=== PATIENT | female | born 1985 | race Caucasian/White ===

== ENCOUNTER 2024-04-14 17:35 | Inpatient (IN) | payer SELFPAY ==
[2024-04-14 18:02] VITALS: BP 164/102; PULSE 92; RESP 17; O2SAT 100
[2024-04-14 20:46] VITALS: BP 165/95; PULSE 88; RESP 16; TEMP 36.7; O2SAT 100
[2024-04-14] MEDS: cephALEXin 500 mg Capsule PO (22:09)
[2024-04-14] MEDS: hyDROXYzine 25 mg Capsule 50 MG PO (22:09)
[2024-04-15 06:00] VITALS: BP 148/90; PULSE 77; RESP 16; TEMP 36.5; O2SAT 98
[2024-04-15] MEDS: cephALEXin 500 mg Capsule PO ×3 (09:11→21:53)
[2024-04-15] MEDS: ibuprofen 600 mg Tablet PO (09:11)
[2024-04-15] MEDS: OLANZapine 5 mg ODT PO (09:12)
--- NOTE | 2024-04-15 10:03 | PC.NURSE ---
PT CONTINUES TO WITHDRAW TO ROOM. RATES ANXIETY /, ZYDIS 5 MG GIVEN ORDERED FOR ANXIETY. RATES DEPRESSION 06/15. PT DENIES SI/HI BUT DOES ENDORSE SEEING ANITA AND HEARING ANITA AT TIMES. PARANOIA IS NOTED AND OBSERVED. PT WAS IBUPROFEN 600 MG FOR PERIOD CRAMPS. PT WEARS A STOCKING HAT DUE TO PULLING OUT HAIR AD HAVING BALD SPOTS. PT DOES HAVE DIFFICULTY FINDING WOR
[2024-04-15 14:00] VITALS: BP 161/96; PULSE 90; RESP 16; O2SAT 100
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
--- NOTE | 2024-04-15 18:25 | PC.NURSE ---
PT RECEIVED ZYDIS 5 MG EARLIER THIS SHIFT. MEDICATION DEEMED EFFECTIVE. PT HAS RESTED INTERMITTENTLY THROUGHOUT THE SHIFT AND HAS NO OTHER COMPLAINTS OF ANXIETY. SUPPORT VOICED.
[2024-04-15 21:03] VITALS: BP 145/87; PULSE 89; RESP 17; O2SAT 97
[2024-04-15] MEDS: hyDROXYzine 25 mg Capsule 50 MG PO (21:53)
[2024-04-16 06:00] VITALS: BP 121/82; PULSE 84; RESP 16; TEMP 36.6; O2SAT 96
[2024-04-16] MEDS: cephALEXin 500 mg Capsule PO ×3 (09:25→21:39)
[2024-04-16] MEDS: buPROPion XL (24 HR) 150 mg Tablet PO (09:25)
[2024-04-16 14:00] VITALS: BP 128/91; PULSE 93; RESP 17; TEMP 36.8; O2SAT 94
--- NOTE | 2024-04-16 16:07 | P.NPUPN_ITS ---
Subjective NPU Subjective: 38-year-old female admitted with depress ion and suicidal ideation in the context to the use of amphetamine. The patient had stated that she felt better and wished to go back to her and go home. She reported no side effects from the Wellbutrin. Patient had stated that she was no longer feeling suicidal.She had reported a history of hair pulling describing stress and relief of tension from hair pulling. Mental Status Exam MSE Comments: She is a casually dressed white female who appeared her stated age. Her speech was normal in rate and normal volume and prosody. Her mood was described as better. Her affect was restricted in range and mood congruent. There was no evidence of any abnormal involuntary motor movements tics or tremors appreciated. There was evidence of mild psychomotor retardation. Her thought process was linear logical and goal-directed. Her thought content showed no evidence of suicidal ideation with no homicidal ideation. She did not appear to be responding internal stimuli. There was no clear evidence of delusional thinking. Her attention span appeared poor. Her recent and remote memory was grossly intact. She was alert and oriented to person place and time. Her insight is poor. Her judgment is limited. Her impulse control appeared limited. Vitals/I&O/Wt Last Vital Signs Temp 98.3 F 04/16/24 14:00 Pulse 93 04/16/24 14:00 Resp 17 04/16/24 14:00 BP 128/91 04/16/24 14:00 Pulse Ox 94 04/16/24 14:00 O2 Del Method Room Air 04/16/24 06:00 A&P Assessment and plan (1) Suicidal ideation: (2) Depression, unspecified: (3) PTSD (post-traumatic stress disorder): Plan 38-year-old female positive for marijuana and amphetamine on arrival to the emergency department and citizens with a history of PTSD and depression endorsi ng suicidal ideation at this time currently on no medications. #1. ?Engage patient in individual milieu and group therapy. #2?? Recommend sober living treatment at the highest level of care to which the patient is willing to commit #3??? Wellbutrin xl 150mg in am #4?? TO-15 minute checks? #5?? Patient requesting discharge, will discharge AMA. Involuntary Hold Information 96 Hour Hold: 96 Hour Involuntary Admission: No Attestations NPU Medical Necessity Statement*: Inpatient hospitalization is medically necessary and deemed to ?be ?the clinically appropriate intervention ?at this time.? We will monitor/initiate medications and make changes as indicated.? Patient to be discharged AMA. Coding Level of Care Code Acute Code for Chg Fwd Diagnoses Suicidal ideation R45.851 Depression, unspecified F32.A PTSD (post-traumatic stress disorder) F43.10
--- NOTE | 2024-04-16 16:14 | W.PM.NPUDCS ---
Diagnoses at Discharge Discharge Diagnosis (1) Depression, unspecified: Status: Acute (2) PTSD (post-traumatic stress disorder): Status: Acute Reason for Visit Reason for Visit: SI, depression Involuntary Hold Information 96 Hour Hold: 96 Hour Involuntary Admission: No Discharge Data Vitals: Last Vital Signs Temp 98.3 F 04/16/24 14:00 Pulse 93 04/16/24 14:00 Resp 17 04/16/24 14:00 BP 128/91 04/16/24 14:00 Pulse Ox 94 04/16/24 14:00 O2 Del Method Room Air 04/16/24 06:00 Discharge Plan Discharge Patient Disposition: Left Against Medical Advice Condition: Stable Prescriptions: No Action No Known Home Medications Discharge Diet: Usual diet Discharge Activity: Resume usual activity Coding Level of Care Code Acute Code for [facility] Diagnoses Depression, unspecified F32.A PTSD (post-traumatic stress disorder) F43.10
[2024-04-16] MEDS: quetiapine 25 mg Tablet 50 MG PO (21:38)
[2024-04-16 22:00] VITALS: BP 134/79; PULSE 79; RESP 17; TEMP 36.6; O2SAT 98
[2024-04-17 06:00] VITALS: BP 126/84; PULSE 71; RESP 15; O2SAT 97
[2024-04-17] MEDS: cephALEXin 500 mg Capsule PO ×2 (08:49→15:57)
[2024-04-17] MEDS: buPROPion XL (24 HR) 150 mg Tablet PO (08:49)
--- NOTE | 2024-04-17 13:34 | P.NPUPN_ITS ---
Subjective NPU Subjective: 38-year-old female admitted with depress ion and suicidal ideation in the context to the use of amphetamine. Patient had continued to report feeling sad about the of her dog. She had reported improved energy. She had endorsed PTSD related symptoms. Patient had reported having been traumatized by some of her experiences in childhood and stated that she had been placed in extremely negative situations while being homeless over the past 3 years. She had stated that she had wished to return to live with her ex-. She had reported having a history of pulling her hair for several years. She did not endorse any feelings of hopelessness. Mental Status Exam MSE Comments: She is a casually dressed white female who appeared her stated age. Her speech was normal in rate and normal volume and prosody. Her mood was described as better. Her affect remmained restricted in range and mood incongruent. There was no evidence of any abnormal involuntary motor movements tics or tremors appreciated. There was evidence of mild psychomotor retardation. Her thought process was linear,logical and goal-directed. Her thought content showed no evidence of suicidal ideation with no homicidal ideation. She did not appear to be responding internal stimuli. There was no clear evidence of delusional thinking. Her attention span appeared poor. Her recent and remote memory was grossly intact. She was alert and oriented to person place and time. Her insight is poor. Her judgment is limited. Her impulse control appeared limited. Vitals/I&O/Wt Last Vital Signs Temp 97.9 F 04/16/24 22:00 Pulse 71 04/17/24 06:00 Resp 15 04/17/24 06:00 BP 126/84 04/17/24 06:00 Pulse Ox 97 04/17/24 06:00 O2 Del Method Room Air 04/16/24 06:00 A&P Assessment and plan (1) Depression, unspecified: (2) Suicidal ideation: (3) PTSD (post-traumatic stress disorder): Plan 38-year-old female positive for marijuana and amphetamine on arrival to the emergency department and citizens with a history of PTSD and depression endorsing suicidal ideation at this time currently on no medications. #1. ?Engage patient in individual milieu and group therapy. #2?? Recommend sober living treatment at the highest level of care to which the patient is willing to commit #3??? Wellbutrin xl 150mg in am and increase seroquel to 100mg at night. #4?? TO-15 minute checks? #5?? Referral for psychotherapy. Patient has uncertain housing situation. Involuntary Hold Information 96 Hour Hold: 96 Hour Involuntary Admission: No Attestations NPU Medical Necessity Statement*: Inpatient hospitalization is medically necessary and deemed to ?be ?the clinically appropriate intervention ?at this time.? We will monitor/initiate medications and make changes as indicated.? Patient likely length of stay is 1-2 days. Coding Level of Care Code Acute Code for Chg Fwd Diagnoses Depression, unspecified F32.A Suicidal ideation R45.851 PTSD (post-traumatic stress disorder) F43.10
[2024-04-17 14:00] VITALS: BP 108/66; PULSE 93; RESP 16; TEMP 36.8; O2SAT 100
[2024-04-17 15:49] VITALS: BP 108/66; PULSE 93; RESP 16; TEMP 36.8; O2SAT 100
--- NOTE | 2024-04-17 16:03 | PC.NURSE ---
Patient came up to nurses' station and told this RN her ride was going to be here any minute. When asked what she meant by that she said that he was coming to pick her up and take her home. This RN discussed with her that she did not have discharge orders. She stated she knew she wasn't on a hold and would like to leave anyway. Dr. Carlos was called and he said if the patient understood that by leaving AMA she would not be getting follow-up, her insurance would not pay for the stay, and prescriptions would not be given, that she could leave. This RN relayed this information to the patient and she said she was fine with this and just wanted to leave. Patient signed AMA form, discharge packet (RN went over discharge information with her), and clothing sheet. Patient was calm and cooperative upon discharge.
== END 2024-04-17 16:06 | disposition home or self-care (01) | DRG 881 ==
PROVIDERS: Admitting Provider Psychiatry & Neurology Psychiatry; Visit Provider Psychiatry & Neurology Psychiatry
DX: F32.A Depression, unspecified (principal); R45.851 Suicidal ideations; F43.10 Post-traumatic stress disorder, unspecified; F15.90 Other stimulant use, unspecified, uncomplicated
CPT/HCPCS: 97150; 97165